=== PATIENT | female | born 1960 | race Caucasian/White ===

== ENCOUNTER 2020-04-28 22:37 | Outpatient (REF) | payer BC, SELFPAY ==
[2020-04-28 22:03] LABS: Anion Gap 6.2 mmol/L (3-11); BUN 17 mg/dL (7-18); CO2 28.8 mmol/L (21.0-32.0); Calcium 9.4 mg/dL (8.5-10.1); Chloride 104 mmol/L (98-107); Glucose 189 mg/dL (74-106); Potassium 4.5 mmol/L (3.5-5.1); Sodium 139 mmol/L (136-145)
== END 2020-04-28 22:57 ==
LOC: NCHCN 22:37
PROVIDERS: Visit Provider Nurse Practitioner Family
DX: I10 Essential (primary) hypertension (principal); E10.21 Type 1 diabetes mellitus with diabetic nephropathy
CPT/HCPCS: 80048

== ENCOUNTER 2021-03-21 08:54 | Outpatient (REF) | payer BC, SELFPAY ==
[2021-03-21 20:46] LABS: Hemoglobin A1C 10.2 % (<5.7)
[2021-03-21 20:49] LABS: Anion Gap 9.3 mmol/L (3-11); BUN 23 mg/dL (7-18); CO2 26.7 mmol/L (21.0-32.0); CREATININE 0.9 mg/dL (0.55-1.02); Calcium 9.3 mg/dL (8.5-10.1); Calculated LDL 104 mg/dL (<100); Chloride 108 mmol/L (98-107); Cholesterol 199 mg/dL (<200); Glucose 81 mg/dL (74-106); HDL Cholesterol 63 mg/dL (40-60); Potassium 4.8 mmol/L (3.5-5.1); Sodium 144 mmol/L (136-145); Triglyceride 163 mg/dL (<150)
== END 2021-03-21 08:55 | disposition home or self-care (01) ==
LOC: NCHCN 08:54
PROVIDERS: Visit Provider Nurse Practitioner Family
DX: Z13.220 Encounter for screening for lipoid disorders (principal); E10.21 Type 1 diabetes mellitus with diabetic nephropathy; I10 Essential (primary) hypertension
CPT/HCPCS: 80048; 80061; 83036

== ENCOUNTER 2022-06-28 21:19 | Outpatient (REF) | payer BC, SELFPAY ==
[2022-06-28 22:31] LABS: Anion Gap 3.6 mmol/L (3-11); BUN 27 mg/dL (7-18); CO2 33.4 mmol/L (21.0-32.0); CREATININE 1.2 mg/dL (0.55-1.02); Calcium 9.4 mg/dL (8.5-10.1); Chloride 105 mmol/L (98-107); Estimated GFR 51.18 (mL/min/1.73m2); Glucose 131 mg/dL (74-106); NT-proBNP 1330 pg/mL (<300); Potassium 3.9 mmol/L (3.5-5.1); Sodium 142 mmol/L (136-145)
== END 2022-06-28 21:20 | disposition home or self-care (01) ==
LOC: LBN 21:19
DX: I25.10 Atherosclerotic heart disease of native coronary artery without angina pectoris (principal); E10.9 Type 1 diabetes mellitus without complications
CPT/HCPCS: 80048; 86341; 83880